=== PATIENT | female | born 1990 | race Caucasian/White ===

== ENCOUNTER 2016-04-14 10:52 | Inpatient (IN) | payer OTHER ==
[~2016-04-14] VITALS: Ht 172.7 cm; Wt 59.1 kg
[~2016-04-14 10:52] MED LIST: CARI350T28 PO; FRCT/ PO; OXYC1TAB3 PO; PROM25TA9 PO
[2016-04-14] MEDS ORDERED: QUET1TAB34 PO (11:21)
[2016-04-14] MEDS ORDERED: VST25HP PO (11:21)
--- NOTE | 2016-04-14 11:38 | EMERGENCY ROOM VISIT NOTE ---
History Report prepared by Donya: Shaun Salazar Under the Supervision of: Dr. Sukumar Bradley M.D. First contact with patient: 11:23 Chief Complaint: MENTAL HEALTH EVALUATION Stated Complaint: MENTAL HEALTH History of Present Illness The patient is a 25 year old female who presents to the Emergency Room with complaints of worsening suicidal thoughts that started recently. She was referred here from her psych doctor. The patient has been thinking that she needs to cut herself, but she has not cut herself for a while. She says that she has "so many plans" to kill herself, including using a gun or overdosing. Her mother had the guns removed from the house recently. Per the patient's fiance, the patient looks online for hours to find the best way to kill herself. She did try to hang herself at age 9. She is clinically depressed and has bipolar. The patient is currently not working, and that stresses her out. She is also planning a wedding. The patient notes that 2 days ago she got really angry at herself and was punching herself. She did not injure herself. She has no physical complaints, and denies any abdominal pain or swelling in her legs. The patient is taking Seroquel so she is sleeping well. Source of History: patient, spouse/significant other Onset: Recently Position: other (global - suicidal ideations) Symptom Intensity: Timing: worsening Associated Symptoms: No abdominal pain Note: Associated symptoms: Denies swelling in legs. Review of Systems See HPI for pertinent positives & negatives. A total of 10 systems reviewed and were otherwise negative. Past Medical & Surgical Medical Problems: (1) Depression (2) Uterine polyp Surgical Problems: (1) S/P section Old medical records were reviewed. Nurse's notes were reviewed and I agree with. Family History Cancer Kidney disease Kidney stones Social History Smoking Status: Current Every Day Smoker Alcohol Use: none Marital Status: single Housing Status: lives with family Occupation Status: unemployed Current/Historical Medications Scheduled Acetamin/Butalbital/Caffeine (Fioricet), 1-2 TAB PO Q4H Carisoprodol (Soma), 350 MG PO TID Hydroxyzine HCl (Hydroxyzine Pamoate), 25 MG PO UD Quetiapine Fumarate (Seroquel), 100 MG PO HS Sucralfate (Carafate), 1 GM PO PRN Allergies Coded Allergies: Acetaminophen (Verified Allergy, Severe, itchy and blotchy, 04/14/16) Hydrocodone (Verified Allergy, Severe, itchy and blotchy, 04/14/16) Ondansetron (Verified Allergy, Severe, red streaks, 04/14/16) Physical Exam Vital Signs Date Time Temp Pulse Resp B/P Pulse Ox O2 Delivery O2 Flow Rate FiO2 04/14/16 13:00 80 16 104/71 99 04/14/16 11:01 37.0 110 18 119/86 99 Room Air Physical Exam General: Well developed well nourished non ill-appearing young female in no acute distress, breathing comfortably on room air. Normal speech HEENT: Normal cephalic atraumatic. Pupils are equal round and reactive to light. Sclerae anicteric. Extraocular movements are intact. Oropharynx is pink with moist mucous membranes. No swelling of the mouth lips or tongue. Neck: Supple with a midline trachea. No meningeal signs or stiffness, no JVD or bruits. No Stridor. Chest: Clear to auscultation bilaterally. No wheezes or rhonchi. No increased work of breathing. Heart: regular rate and rhythm. Abdomen: Soft nontender, nondistended without rebound guarding or rigidity. Extremities: No cyanosis clubbing or edema. No calf tenderness or assymetry Spine/Back. Non tender to palpation. No CVA tenderness Skin: Good turgor without rashes. Psych: Normal thought process, has suicidal ideations, somewhat flattened affect. Neurologic exam: Cranial nerves two through 12 are intact. Motor and sensation are intact and symmetrical throughout. Medical Decision & Procedures Laboratory Results 04/14/16 12:01 Red Blood Count 4.23, Mean Corpuscular Volume 89.1, Mean Corpuscular Hemoglobin 32.4, Mean Corpuscular Hemoglobin Concent 36.3, Mean Platelet Volume 10.0, Neutrophils (%) (Auto) 58.0, Lymphocytes (%) (Auto) 36.1, Monocytes (%) (Auto) 4.6, Eosinophils (%) (Auto) 1.1, Basophils (%) (Auto) 0.1, Neutrophils # (Auto) 4.63, Lymphocytes # (Auto) 2.89, Monocytes # (Auto) 0.37, Eosinophils # (Auto) 0.09, Basophils # (Auto) 0.01 04/14/16 12:01 Test 04/14/16 00:00 04/14/16 12:01 Urine Opiates Screen POS (NEG) Urine Methadone, Qualitative NEG (NEG) Urine Barbiturates POS (NEG) Urine Phencyclidine (PCP) Level NEG (NEG) Ur Amphetamine/Methamphetamine NEG (NEG) MDMA (Ecstasy) Screen NEG (NEG) Urine Benzodiazepines Screen NEG (NEG) Urine Cocaine Metabolite NEG (NEG) Urine Marijuana (THC) NEG (NEG) White Blood Count 8.00 K/uL (4.8-10.8) Red Blood Count 4.23 M/uL (4.2-5.4) Hemoglobin 13.7 g/dL (12.0-16.0) Hematocrit 37.7 % (37-47) Mean Corpuscular Volume 89.1 fL (80-100) Mean Corpuscular Hemoglobin 32.4 pg (25-34) Mean Corpuscular Hemoglobin Concent 36.3 g/dl (32-36) Platelet Count 192 K/uL (130-400) Mean Platelet Volume 10.0 fL (7.4-10.4) Neutrophils (%) (Auto) 58.0 % Lymphocytes (%) (Auto) 36.1 % Monocytes (%) (Auto) 4.6 % Eosinophils (%) (Auto) 1.1 % Basophils (%) (Auto) 0.1 % Neutrophils # (Auto) 4.63 K/uL (1.4-6.5) Lymphocytes # (Auto) 2.89 K/uL (1.2-3.4) Monocytes # (Auto) 0.37 K/uL (0.11-0.59) Eosinophils # (Auto) 0.09 K/uL (0-0.5) Basophils # (Auto) 0.01 K/uL (0-0.2) RDW Standard Deviation 37.1 fL (36.4-46.3) RDW Coefficient of Variation 11.5 % (11.5-14.5) Immature Granulocyte % (Auto) 0.1 % Immature Granulocyte # (Auto) 0.01 K/uL (0.00-0.02) Anion Gap 8.0 mmol/L (3-11) Est Creatinine Clear Calc Drug Dose 118.0 ml/min Estimated GFR () 140.9 Estimated GFR (Non- 121.6 BUN/Creatinine Ratio 17.4 (10-20) Calcium Level 8.6 mg/dl (8.5-10.1) Total Bilirubin 0.3 mg/dl (0.2-1) Direct Bilirubin < 0.1 mg/dl (0-0.2) Aspartate Amino Transf (AST/SGOT) 13 U/L (15-37) Alanine Aminotransferase (ALT/SGPT) 25 U/L (12-78) Alkaline Phosphatase 78 U/L (45-117) Total Protein 6.9 gm/dl (6.4-8.2) Albumin 3.8 gm/dl (3.4-5.0) Lipase 251 U/L (73-393) Thyroid Stimulating Hormone (TSH) 1.070 uIu/ml (0.300-4.500) Human Chorionic Gonadotropin, Qual NEG (NEG) Salicylates Level 5.1 mg/dl (2.8-20) Acetaminophen Level < 2 ug/ml (10-30) Ethyl Alcohol mg/dL < 3.0 mg/dl (0-3) Laboratory studies as stated above per my review. ED Course 1124: Past medical records reviewed. The patient was evaluated in room A7, and a complete history and physical examination were performed. 1328: I reevaluated the patient and she is resting comfortably. The patient verbally expressed understanding and agreement of the treatment plan. The patient will be evaluated for further treatment. 1330: The patient was seen by [facility]. [facility] will admit the patient for further treatment. 2100: Ordered Remove Nicoderm Patch 1 ea N/A. 0900: Ordered Nicoderm Cq 21MG Patch 1 patch TD. Medical Decision Differential diagnoses include: depression, anxiety, suicidal ideations. This patient comes in as described above. She has depression with multiple different suicidal ideation she's had no suicidal attempt. She was sent over by a psychiatrist. She has no physical complaints. Multiple blood testing was obtained for medical clearance. She is medically cleared. She has seen by [facility]. and they are going to admit her for further inpatient treatment and evaluation. Impression Primary Impression: Depression with suicidal ideation Scribe Attestation The scribe's documentation has been prepared under my direction and personally reviewed by me in its entirety. I confirm that the note above accurately reflects all work, treatment, procedures, and medical decision making performed by me. Departure Information Dispostion Mental Health Acute Care Referrals Ej Sutton M.D. (PCP) Patient Instructions My [facility]
[2016-04-14 12:19] LABS: BASO % 0.1 %; BASO ABS # 0.01 K/uL (0-0.2); COMPLETE YES; EOS % 1.1 %; HEMATOCRIT 37.7 % (37-47); IG% 0.1 %; LYMPH % 36.1 %; LYMPH ABS # 2.89 K/uL (1.2-3.4); MEAN CELL VOLUME 89.1 fL (80-100); MEAN CORPUSCULAR HEMOGLOBIN 32.4 pg (25-34); MEAN CORPUSCULAR HGB CONC 36.3 g/dl (32-36); MONO % 4.6 %; PLATELET COUNT 192 K/uL (130-400); RED BLOOD COUNT 4.23 M/uL (4.2-5.4)
[2016-04-14 12:36] LABS: BLOOD UREA NITROGEN 12 mg/dl (7-18); BUN/CREATININE RATIO 17.4 (10-20); CALCIUM 8.6 mg/dl (8.5-10.1); CARBON DIOXIDE 24 mmol/L (21-32); CHLORIDE 112 mmol/L (98-107); CREATININE 0.68 mg/dl (0.60-1.20); GLUCOSE 85 mg/dl (70-99); SODIUM 144 mmol/L (136-145)
[2016-04-14 12:39] LABS: BENZODIAZEPINE, URINE NEG (NEG); COCAINE,URINE NEG (NEG); PHENCYCLIDINE, URINE NEG (NEG)
[2016-04-14 12:39] LABS: ALKALINE PHOSPHATASE 78 U/L (45-117); ALT/SGPT 25 U/L (12-78); AST/SGOT 13 U/L (15-37)
[2016-04-14 12:40] LABS: ACETAMINOPHEN < 2 ug/ml (10-30); PREG INTERNAL POSITIVE QC POS CONTROL LINE
[2016-04-14 12:41] LABS: PREG INTERNAL NEGATIVE QC NEG CLEAR BACKGROUND
[2016-04-14 13:00] VITALS: O2SAT 99
[2016-04-14] MEDS ORDERED: NICOTINE 21 MG/24 HR TDSY ONE (13:28)
[2016-04-14] MEDS ORDERED: MAGNESIUM HYDROXIDE SUSP 30 ML UDC PO PRN (13:45)
[2016-04-14] MEDS ORDERED: SODIUM CHLORIDE 0.65% NA SOLN 45 ML (OCEAN) PRN (13:45)
[2016-04-14] MEDS ORDERED: IBUPROFEN 200 MG TAB PO PRN (13:45)
[2016-04-14] MEDS ORDERED: ALUMINUM/MAGNESIUM SUSP 30 ML UDC PO PRN (13:45)
[2016-04-14] MEDS ORDERED: BISMUTH SUBSALICYLATE PER ML OMNICELL CHARGE PO PRN (13:45)
[2016-04-14] MEDS ORDERED: BUTALBITAL/ASA/CAFFEINE/COD 50/325/40/30 MG CAP PO PRN ×2 (15:00→22:00)
[2016-04-14] MEDS ORDERED: SUCRALFATE 1 GM TAB PO PRN ×2 (15:00→17:30)
[2016-04-14] MEDS ORDERED: QUETIAPINE FUMARATE 25 MG TAB PO PRN (15:15)
[2016-04-14 15:39] VITALS: BP 120/84; PULSE 101; TEMP 36.9; Ht 172.7 cm; Wt 59.1 kg
[2016-04-14] MEDS: NICOTINE POLACRILEX 2 MG GUM MT PRN ×2 (16:41→21:23)
[2016-04-14] MEDS ORDERED: SUCR1TAB29 PO (17:15)
[2016-04-14] MEDS ORDERED: NURSING VERBAL MED ORDER ONE ×2 (17:15→17:30)
[2016-04-14] MEDS ORDERED: SUCRALFATE 1 GM TAB PO SCH (17:45)
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
[2016-04-14] MEDS: CARISOPRODOL 350 MG TAB PO SCH (21:23)
[2016-04-14] MEDS: QUETIAPINE FUMARATE 100 MG TAB PO SCH (22:45)
[2016-04-15 06:59] LABS: CHOLESTEROL/HDL RATIO 3.2
[2016-04-15 07:02] VITALS: BP_SYST 101; BP_SYST 99; BP_DIAS 64; PULSE 81; PULSE 97; TEMP 36.9
[2016-04-15] MEDS: NICOTINE POLACRILEX 2 MG GUM MT PRN ×6 (07:02→21:47)
[2016-04-15] MEDS: CARISOPRODOL 350 MG TAB PO SCH ×3 (08:50→21:43)
[2016-04-15] MEDS: NICOTINE 21 MG/24 HR TDSY TD SCH (08:52)
[2016-04-15] MEDS ORDERED: NICOTINE 21 MG/24 HR TDSY TD SCH (09:00)
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
[2016-04-15] MEDS ORDERED: BUTALBITAL/ASA/CAFFEINE/COD 50/325/40/30 MG CAP PO ONE (09:41)
[2016-04-15] MEDS ORDERED: MedroxyPROGESTERone ACETATE 150 MG/ML 1 ML VIAL IM ONE (09:45)
[2016-04-15] MEDS: BUTALBITAL/ASA/CAFFEINE/COD 50/325/40/30 MG CAP PO PRN ×2 (13:02→21:40)
[2016-04-15] MEDS: hydrOXYzine HCL 25 MG TAB PO PRN ×2 (18:41→23:43)
[2016-04-15] MEDS: QUETIAPINE FUMARATE 100 MG TAB PO SCH (21:42)
[2016-04-16 06:48] VITALS: BP_SYST 102; BP_SYST 90; BP_DIAS 53; BP_DIAS 64; PULSE 83; PULSE 87; TEMP 37
[2016-04-16] MEDS: CARISOPRODOL 350 MG TAB PO SCH ×3 (09:01→21:18)
[2016-04-16] MEDS: NICOTINE 21 MG/24 HR TDSY TD SCH (09:02)
[2016-04-16] MEDS: NICOTINE POLACRILEX 2 MG GUM MT PRN ×5 (09:02→22:26)
[2016-04-16] MEDS: hydrOXYzine HCL 25 MG TAB PO PRN ×2 (13:51→22:16)
[2016-04-16] MEDS: BUTALBITAL/ASA/CAFFEINE/COD 50/325/40/30 MG CAP PO PRN ×2 (13:55→19:31)
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
[2016-04-16] MEDS ORDERED: NURSING VERBAL MED ORDER ONE (20:15)
[2016-04-16] MEDS: QUETIAPINE FUMARATE 100 MG TAB PO SCH (21:19)
[2016-04-17 06:36] VITALS: BP_SYST 106; BP_SYST 94; BP_DIAS 58; BP_DIAS 64; PULSE 69; PULSE 85; TEMP 37
[2016-04-17] MEDS: CARISOPRODOL 350 MG TAB PO SCH ×3 (08:41→21:16)
[2016-04-17] MEDS: NICOTINE 21 MG/24 HR TDSY TD SCH (08:42)
[2016-04-17] MEDS: NICOTINE POLACRILEX 2 MG GUM MT PRN ×4 (11:08→21:58)
[2016-04-17] MEDS: BUTALBITAL/ASA/CAFFEINE/COD 50/325/40/30 MG CAP PO PRN ×2 (12:07→18:40)
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
[2016-04-17] MEDS ORDERED: NURSING VERBAL MED ORDER ONE (17:15)
[2016-04-17] MEDS: QUETIAPINE FUMARATE 100 MG TAB PO SCH (21:17)
[2016-04-17] MEDS: hydrOXYzine HCL 25 MG TAB PO PRN (21:18)
[2016-04-17] MEDS: LITHIUM CARBONATE 300 MG TAB PO SCH (21:18)
[2016-04-18 06:30] VITALS: BP_SYST 101; BP_SYST 105; BP_DIAS 69; BP_DIAS 71; PULSE 85; PULSE 90; TEMP 36.9
[2016-04-18] MEDS: NICOTINE 21 MG/24 HR TDSY TD SCH (08:33)
[2016-04-18] MEDS: CARISOPRODOL 350 MG TAB PO SCH ×3 (08:34→21:56)
[2016-04-18] MEDS: NICOTINE POLACRILEX 2 MG GUM MT PRN ×4 (08:34→20:00)
[2016-04-18] MEDS: LITHIUM CARBONATE 300 MG TAB PO SCH ×2 (08:34→21:56)
[2016-04-18] MEDS: BUTALBITAL/ASA/CAFFEINE/COD 50/325/40/30 MG CAP PO PRN ×2 (10:16→16:18)
[2016-04-18] MEDS: hydrOXYzine HCL 25 MG TAB PO PRN ×2 (12:46→22:01)
[2016-04-18 15:43] LABS: COD UR 236 NG/ML (CUTOFF=50); HYDROCOD UR NEGATIVE NG/ML (CUTOFF=50); HYDROMOR UR 57 NG/ML (CUTOFF=50); MORPHINE UR 845 NG/ML (CUTOFF=50); NORHYDROCODONE CONF UR 333 NG/ML (CUTOFF=50); OXYMORPH UR NEGATIVE NG/ML (CUTOFF=50)
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
[2016-04-18] MEDS: POLYETHYLENE (MIRALAX) 17 GM PACK PO PRN (19:10)
[2016-04-18] MEDS: QUETIAPINE FUMARATE 100 MG TAB PO SCH (21:56)
[2016-04-19 07:02] VITALS: BP_SYST 104; BP_SYST 106; BP_DIAS 68; BP_DIAS 69; PULSE 87; PULSE 97; TEMP 36.8
[2016-04-19] MEDS: NICOTINE 21 MG/24 HR TDSY TD SCH (09:43)
[2016-04-19] MEDS: CARISOPRODOL 350 MG TAB PO SCH ×3 (09:43→21:10)
[2016-04-19] MEDS: LITHIUM CARBONATE 300 MG TAB PO SCH ×2 (09:43→21:09)
[2016-04-19] MEDS: NICOTINE POLACRILEX 2 MG GUM MT PRN ×5 (09:44→21:59)
[2016-04-19] MEDS: BUTALBITAL/ASA/CAFFEINE/COD 50/325/40/30 MG CAP PO PRN ×2 (14:20→20:47)
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
[2016-04-19] MEDS: POLYETHYLENE (MIRALAX) 17 GM PACK PO PRN (15:55)
[2016-04-19] MEDS: QUETIAPINE FUMARATE 100 MG TAB PO SCH (21:09)
[2016-04-19] MEDS: hydrOXYzine HCL 25 MG TAB PO PRN (21:21)
[2016-04-20 06:45] VITALS: BP_SYST 105; BP_SYST 99; BP_DIAS 62; BP_DIAS 67; PULSE 80; PULSE 94; TEMP 37
[2016-04-20] MEDS: NICOTINE 21 MG/24 HR TDSY TD SCH (08:23)
[2016-04-20] MEDS: LITHIUM CARBONATE 300 MG TAB PO SCH (08:23)
[2016-04-20] MEDS: CARISOPRODOL 350 MG TAB PO SCH (08:23)
[2016-04-20] MEDS: NICOTINE POLACRILEX 2 MG GUM MT PRN (09:14)
[2016-04-20] MEDS ORDERED: SRQ300 PO (11:45)
[2016-04-20] MEDS ORDERED: VST25HP PO (11:45)
[2016-04-20] MEDS ORDERED: LTH300T PO (11:45)
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
== END 2016-04-20 11:58 | disposition home or self-care (01) | DRG 885 ==
LOC: C.EDB 10:54 → C.MHU 13:48
PROVIDERS: ADMIT Psychiatry & Neurology Child & Adolescent Psychiatry; ATTEND Psychiatry & Neurology Child & Adolescent Psychiatry
DX: F31.81 Bipolar II disorder (principal); R45.851 Suicidal ideations; F43.10 Post-traumatic stress disorder, unspecified; G89.29 Other chronic pain; Z81.8 Family history of other mental and behavioral disorders; Z79.899 Other long term (current) drug therapy

== ENCOUNTER → 2016-12-28 | Outpatient (CLI) | payer OTHER ==
[~2016-12-28] MED LIST changes: +LTH300T PO; -OXYC1TAB3 PO; -PROM25TA9 PO; +SRQ300 PO; +SUCR1TAB29 PO; +VST25HP PO
[2016-12-28 14:20] LABS: THYROID STIMULATING HORMONE 3.17 uIu/ml (0.300-4.500)
== END | disposition home or self-care (01) ==
LOC: C.LABMFLN 10:19
PROVIDERS: ATTEND Family Medicine
DX: K59.09 Other constipation (principal)

== ENCOUNTER → 2017-03-27 | Outpatient (CLI) | payer OTHER ==
[2017-03-27 12:27] LABS: ALBUMIN 3.7 gm/dl (3.4-5.0); ALT/SGPT 33 U/L (12-78); BLOOD UREA NITROGEN 17 mg/dl (7-18); CALCIUM 8.7 mg/dl (8.5-10.1); CARBON DIOXIDE 24 mmol/L (21-32); CREATININE 0.65 mg/dl (0.60-1.20); GLUCOSE 89 mg/dl (70-99); POTASSIUM 4.2 mmol/L (3.5-5.1); SODIUM 139 mmol/L (136-145)
[2017-03-27 12:38] LABS: ALKALINE PHOSPHATASE 82 U/L (45-117); AST/SGOT 18 U/L (15-37)
== END | disposition home or self-care (01) ==
LOC: C.LAB1850 10:24
PROVIDERS: ATTEND Internal Medicine Endocrinology, Diabetes & Metabolism
DX: E55.9 Vitamin D deficiency, unspecified (principal)

== ENCOUNTER → 2017-04-02 | Outpatient (CLI) | payer OTHER | END | disposition home or self-care (01) | LOC: C.LABMFLN 12:18 | PROVIDERS: ATTEND Family Medicine | DX: E55.9 Vitamin D deficiency, unspecified (principal) ==

== ENCOUNTER 2017-05-12 08:38 | Emergency (ER) | payer OTHER ==
[~2017-05-12] VITALS: Ht 172.7 cm; Wt 64.0 kg
[2017-05-12 08:40] VITALS: Ht 172.7 cm; Wt 64.0 kg
[2017-05-12] MEDS ORDERED: OXYC-57 PO (10:05)
[2017-05-12] MEDS ORDERED: PROM25TA9 PO (10:05)
[2017-05-12] MEDS ORDERED: ESCI10TA17 PO (10:05)
[2017-05-12] MEDS ORDERED: ASPI325T39 PO (10:07)
[2017-05-12] MEDS ORDERED: KETOROLAC TROMETHAMINE 30 MG/ML VIAL IV STA (10:08)
--- NOTE | 2017-05-12 10:10 | DIAGNOSTIC IMAGING REPORT ---
R FOOT MIN 3 VIEWS ROUTINE CLINICAL HISTORY: 26 years-old Female presenting with post op bunyion surgery. TECHNIQUE: Frontal, oblique, and lateral views of the right foot were obtained. COMPARISON: None. FINDINGS: Postsurgical changes of osteotomy across the neck of the first metatarsal with single screw fixation. Normal anatomic alignment of the first metatarsal with the proximal phalanx of the first toe. No other abnormality is evident apart from a suspected bone island in the anterior process of the talus. IMPRESSION: Postsurgical changes of the first metatarsal. Normal anatomic alignment. Electronically signed by: Jimi Toro M.D. 05/12/2017 10:09 AM Dictated Date/Time: 05/12/2017 10:08 AM
[2017-05-12] MEDS ORDERED: OXYCODONE HCL IR 5 MG TAB (IMMEDIATE RELEASE) PO STA (10:14)
[2017-05-12 11:27] LABS: BASO % 0.3 %; BASO ABS # 0.03 K/uL (0-0.2); EOS % 1.8 %; EOS ABS # 0.18 K/uL (0-0.5); HEMATOCRIT 38.1 % (37-47); HEMOGLOBIN 13.5 g/dL (12.0-16.0); IG# 0.02 K/uL (0.00-0.02); LYMPH % 26.9 %; LYMPH ABS # 2.71 K/uL (1.2-3.4); MEAN CELL VOLUME 90.3 fL (80-100); MEAN CORPUSCULAR HGB CONC 35.4 g/dl (32-36); MEAN PLATELET VOLUME 10.1 fL (7.4-10.4); MONO % 3.8 %; MONO ABS # 0.38 K/uL (0.11-0.59); NEUT ABS # 6.75 K/uL (1.4-6.5); PLATELET COUNT 163 K/uL (130-400); RED CELL DISTRIBUTION WIDTH CV 11.8 % (11.5-14.5); RED CELL DISTRIBUTION WIDTH SD 38.5 fL (36.4-46.3); WHITE BLOOD COUNT 10.07 K/uL (4.8-10.8)
[2017-05-12 11:37] LABS: CALCIUM 8.2 mg/dl (8.5-10.1); CREATININE 0.66 mg/dl (0.60-1.20); POTASSIUM 3.6 mmol/L (3.5-5.1)
[2017-05-12] MEDS ORDERED: OXYC1TAB3 PO (11:38)
[2017-05-12 11:50] VITALS: BP 105/71; PULSE 89; TEMP 36.8; O2SAT 97
[2017-05-12 12:02] LABS: INFLUENZA A PCR Neg for Influ A (NEG); INFLUENZA B PCR Neg for Influ B (NEG)
--- NOTE | 2017-05-12 15:53 | EMERGENCY ROOM VISIT NOTE ---
ED Visit Note First contact with patient: 08:50 Resident Physician Supervision Note: I interviewed and examined the patient. Discussed with Dr. Leigh and agree with findings and plan as documented in the note. Any exceptions or clarifications are listed here: This patient was evaluated and appeared to be in some discomfort. Evaluation of the right foot reveals well-healing incisions. There is mild erythema without obvious cellulitis or wound infection. The patient is tearful and anxious. I suspect she is in pain however I do not believe she is narcotic na ve. She has been taking 2 Percocet tablets every 4 hours without any significant improvement in pain. Patient and her at the bedside apparently laughed when OxyIR 5 mg by mouth was offered by nursing staff. She did take the medication. I do not see an indication for advice at this time as the patient's white blood cell count and sedimentation rate are normal. CRP is mildly elevated, likely postsurgical. Patient has remained afebrile here well beyond 6 hours after her last dose of Tylenol. She was given a short prescription for OxyIR to be taken for breakthrough pain until she can follow- up with her changer fixer in 2 days, Sunday. They will return to the ER for worsening of symptoms or any medical concerns. Documented By: Patrizia Chandler
--- NOTE | 2017-05-13 22:22 | EMERGENCY ROOM VISIT NOTE ---
History First contact with patient: 08:50 Chief Complaint: FOOT PAIN Stated Complaint: R FOOT PAIN POST SURGERY History of Present Illness The patient is a 26 year old female who presents to the Emergency Room with complaints of right foot pain. She is 3 days post op from Bunion surgery. She reports a temp of 103 this morning and worsening pain. She did call her fiberglass dowel drawing operator who recommended taking tylenol. She decided to come to the ER because her pain is worse and she is worried about a possible infection. She denies any numbness/tingling. Denies nausea, vomiting. She does feel like a blister is forming at her heels. She feels as though her cast is too tight. She has been taking percocet 2 tabs every 4 hours and reports that it's not "touching" the pain. She denies shortness of breath. She does have a cough Denies calf tenderness She currently takes Soma and Fioricet for her headaches. Review of Systems See above for pertinent positives & negatives. A total of 10 systems reviewed and were otherwise negative. Past Medical/Surgical History Medical Problems: (1) Bipolar II disorder (2) Chronic pain (3) Depression (4) past psych meds (5) PTSD (post-traumatic stress disorder) (6) Uterine polyp Surgical Problems: (1) S/P section Family History Cancer Kidney disease Kidney stones Social History Smoking Status: Current Every Day Smoker Alcohol Use: none Marital Status: single Housing Status: lives with family Occupation Status: unemployed Current/Historical Medications Scheduled Aspirin (Aspirin Ec), 325 MG PO QAM Carisoprodol (Soma), 350 MG PO TID Escitalopram (Lexapro), 10 MG PO QAM Sucralfate (Carafate), 1 GM PO PRN Scheduled PRN Acetamin/Butalbital/Caffeine (Fioricet), 1-2 TAB PO Q4H PRN for Migraine Hydroxyzine HCl (Hydroxyzine Pamoate), 25 MG PO UD PRN for Anxiety/Agitation Oxycodone Immediate Rel Tab (Roxicodone Ir), 5 MG PO Q6H PRN for Pain Oxycodone/Acetaminophen 5MG/325MG (Percocet 5MG/325MG), 1 TABLET PO Q6H PRN for Pain Promethazine Hcl (Phenergan), 25 MG PO Q4H PRN for Nausea Physical Exam Vital Signs Date Time Temp Pulse Resp B/P (MAP) Pulse Ox O2 Delivery O2 Flow Rate FiO2 05/12/17 11:50 36.8 89 18 105/71 97 05/12/17 10:32 37.1 88 16 110/69 98 Room Air 05/12/17 08:40 36.8 120 18 164/71 94 Room Air Physical Exam GENERAL: Patient is awake alert and in mild distress EYES: The conjunctivae are clear. The pupils are round and reactive. EARS, NOSE, MOUTH AND THROAT: Mucous membranes are moist tongue is midline NECK: The neck is nontender and supple. RESPIRATORY: Normal respiratory effort. NO wheezing rales or ronchi CARDIOVASCULAR: Regular rate and rhythm noted there no murmurs rubs or gallops normal S1 normal S2 GASTROINTESTINAL: The abdomen is soft. Bowel sounds are present in all quadrants. Abdomen is nontender MUSCULOSKELETAL/EXTREMITIES: The right foot is in a partial cast. The cast was removed. There are two incisions on the medial and later side of the feet. Both are clean, dry, intact. No drainage, minimal warmth, moderate tenderness. ROM at the ankle is limited due to pain. No calf tenderness. NEUROLOGIC: Patient is awake alert and oriented x3 Medical Decision & Procedures Laboratory Results 05/12/17 11:00 Red Blood Count 4.22, Mean Corpuscular Volume 90.3, Mean Corpuscular Hemoglobin 32.0, Mean Corpuscular Hemoglobin Concent 35.4, Mean Platelet Volume 10.1, Neutrophils (%) (Auto) 67.0, Lymphocytes (%) (Auto) 26.9, Monocytes (%) (Auto) 3.8, Eosinophils (%) (Auto) 1.8, Basophils (%) (Auto) 0.3, Neutrophils # (Auto) 6.75, Lymphocytes # (Auto) 2.71, Monocytes # (Auto) 0.38, Eosinophils # (Auto) 0.18, Basophils # (Auto) 0.03 05/12/17 11:00 Test 05/12/17 10:50 05/12/17 11:00 Influenza Type A (RT-PCR) Neg for Influ A (NEG) Influenza Type B (RT-PCR) Neg for Influ B (NEG) White Blood Count 10.07 K/uL (4.8-10.8) Red Blood Count 4.22 M/uL (4.2-5.4) Hemoglobin 13.5 g/dL (12.0-16.0) Hematocrit 38.1 % (37-47) Mean Corpuscular Volume 90.3 fL (80-100) Mean Corpuscular Hemoglobin 32.0 pg (25-34) Mean Corpuscular Hemoglobin Concent 35.4 g/dl (32-36) Platelet Count 163 K/uL (130-400) Mean Platelet Volume 10.1 fL (7.4-10.4) Neutrophils (%) (Auto) 67.0 % Lymphocytes (%) (Auto) 26.9 % Monocytes (%) (Auto) 3.8 % Eosinophils (%) (Auto) 1.8 % Basophils (%) (Auto) 0.3 % Neutrophils # (Auto) 6.75 K/uL (1.4-6.5) Lymphocytes # (Auto) 2.71 K/uL (1.2-3.4) Monocytes # (Auto) 0.38 K/uL (0.11-0.59) Eosinophils # (Auto) 0.18 K/uL (0-0.5) Basophils # (Auto) 0.03 K/uL (0-0.2) RDW Standard Deviation 38.5 fL (36.4-46.3) RDW Coefficient of Variation 11.8 % (11.5-14.5) Immature Granulocyte % (Auto) 0.2 % Immature Granulocyte # (Auto) 0.02 K/uL (0.00-0.02) Erythrocyte Sedimentation Rate 7 mm/hr (0-21) Anion Gap 5.0 mmol/L (3-11) Est Creatinine Clear Calc Drug Dose 130.3 ml/min Estimated GFR () 141.3 Estimated GFR (Non- 121.9 BUN/Creatinine Ratio 12.7 (10-20) Calcium Level 8.2 mg/dl (8.5-10.1) C-Reactive Protein 1.53 mg/dl (0-0.29) Medications Administered Medications (Trade) Dose Ordered Sig/Austen Route Start Time Stop Time Status Last Admin Dose Admin Oxycodone HCl (Roxicodone Immediate Rel Tab) 5 mg NOW STAT PO 05/12/17 10:14 05/12/17 10:30 DC 05/12/17 10:36 5 MG Medical Decision This is a 26 y/o F who presents with worsening pain and fever s/p bunion surgery. DDx include pneumonia, dvt, infection, post op pain, viral illness etc. Foot X-ray show post surgical changes. Exam was unremarkable. The incisions were clean dry and intact without any drainage. She was afebrile while in the ED. She was complaining of pain and this was managed with oxycodone. CBC did not reveal any leucocytosis. ESR was normal. Crp was slightly elevated at 1.5. Flu swab was negative for influenza A and B. Her foot was re-casted. Her pain is likely post-op pain and currently there is no evidence of infection. She was advised to continue her percocet as prescribed by her Management Aide. She was given a short course of Oxycodone until she can follow up with her fiberglass dowel drawing operator. She was advised to follow up on Sunday. Should her pain continue to worsen or fever persists she was advised to come back to the ED. Impression Primary Impression: Postoperative pain of extremity Departure Information Dispostion Home / Self-Care Condition GOOD Prescriptions Oxycodone Immediate Rel Tab (ROXICODONE IR) 5 Mg Tab 5 MG PO Q6H Y for Pain, #15 TAB Prov: Reta Leigh MD 05/12/17 Forms HOME CARE DOCUMENTATION FORM, IMPORTANT VISIT INFORMATION Patient Instructions My [facility] Additional Instructions You were seen in the ED due to foot pain after orthopedic surgery. Your blood work here did not reveal any signs of infection. Your foot was removed from the existing cast and examined and there was no signs of infection at this time. You foot was redressed and recasted. Please continue your pain meds as prescribed. Please follow up with your Management Aide on SundayMay 14 If you have worsening pain, fevers, or other concerns, please call your PCP or come back to the ED.
== END 2017-05-12 11:51 | disposition home or self-care (01) ==
LOC: C.EDB 08:40
DX: G89.18 Other acute postprocedural pain (principal); Z98.890 Other specified postprocedural states; F31.81 Bipolar II disorder; G89.29 Other chronic pain; F17.200 Nicotine dependence, unspecified, uncomplicated; Z79.82 Long term (current) use of aspirin; Z80.9 Family history of malignant neoplasm, unspecified; Z84.1 Family history of disorders of kidney and ureter

== ENCOUNTER 2017-05-31 22:55 | Emergency (ER) | payer OTHER ==
[~2017-05-31] VITALS: Ht 172.7 cm; Wt 65.6 kg
[~2017-05-31 22:55] MED LIST changes: +ASPI325T39 PO; +ESCI10TA17 PO; -LTH300T PO; +OXYC-57 PO; +OXYC1TAB3 PO; +PROM25TA9 PO; -SRQ300 PO
[2017-05-31 23:00] VITALS: TEMP 36.7; Ht 172.7 cm; Wt 65.6 kg
[2017-05-31] MEDS ORDERED: KETOROLAC TROMETHAMINE 30 MG/ML VIAL IV STA (23:15)
[2017-05-31] MEDS ORDERED: CEFTRIAXONE SOD INJ 1 GM ADDVIAL IV STA (23:15)
[2017-06-01 00:10] LABS: ALBUMIN 3.8 gm/dl (3.4-5.0); ALT/SGPT 18 U/L (12-78); BLOOD UREA NITROGEN 17 mg/dl (7-18); CALCIUM 8.4 mg/dl (8.5-10.1); CARBON DIOXIDE 24 mmol/L (21-32); CREATININE 0.67 mg/dl (0.60-1.20); GLUCOSE 96 mg/dl (70-99); POTASSIUM 3.5 mmol/L (3.5-5.1); SODIUM 138 mmol/L (136-145)
[2017-06-01 00:12] LABS: ALKALINE PHOSPHATASE 96 U/L (45-117); AST/SGOT 14 U/L (15-37); TOTAL PROTEIN 7.3 gm/dl (6.4-8.2)
[2017-06-01 00:13] LABS: BASO % 0.3 %; BASO ABS # 0.03 K/uL (0-0.2); EOS % 1.7 %; EOS ABS # 0.19 K/uL (0-0.5); HEMATOCRIT 38.2 % (37-47); HEMOGLOBIN 13.8 g/dL (12.0-16.0); IG# 0.03 K/uL (0.00-0.02); LYMPH % 37.2 %; LYMPH ABS # 4.21 K/uL (1.2-3.4); MEAN CELL VOLUME 90.1 fL (80-100); MEAN CORPUSCULAR HEMOGLOBIN 32.5 pg (25-34); MEAN CORPUSCULAR HGB CONC 36.1 g/dl (32-36); MONO % 5.8 %; MONO ABS # 0.66 K/uL (0.11-0.59); NEUT % 54.7 %; NEUT ABS # 6.21 K/uL (1.4-6.5); PLATELET COUNT 224 K/uL (130-400); WHITE BLOOD COUNT 11.33 K/uL (4.8-10.8)
[2017-06-01] MEDS ORDERED: OPTIRAY 320 IV PRN (01:15)
[2017-06-01] MEDS ORDERED: CEPH500C2 PO (02:08)
[2017-06-01] MEDS ORDERED: OXYCODONE IR HOME PACK PO ONE (02:15)
[2017-06-01] MEDS ORDERED: CEPHALEXIN 500MG HOME PACK 1 EA BTL PO ONE (02:15)
[2017-06-01 02:41] VITALS: BP 114/62; PULSE 91; O2SAT 100
--- NOTE | 2017-06-01 04:58 | EMERGENCY ROOM VISIT NOTE ---
History First contact with patient: 23:05 Chief Complaint: OTHER COMPLAINT Stated Complaint: S/P FOOT SURGERY, RT FOOT INCISION WARM/THROBBING History of Present Illness The patient is a 26 year old female who presents to the Emergency Room with complaints of right foot pain and swelling for the past few days who had bunionectomy surgery done 3 weeks ago and [place] by podiatry. Patient states things are doing better for her in the past few days she feels as if there might be an infection. Patient does smoke and is on control. Patient denies fever, chills, numbness, tingling, new injury, chest pain, dyspnea, flulike illness. Tetanus is current. No IV drug abuse. Review of Systems An 10 system review of systems was completed with positives and pertinent negatives listed in the HPI. Past Medical/Surgical History Medical Problems: (1) Bipolar II disorder (2) Chronic pain (3) Depression (4) past psych meds (5) PTSD (post-traumatic stress disorder) (6) Uterine polyp Surgical Problems: (1) S/P section Family History Cancer Kidney disease Kidney stones Social History Smoking Status: Current Every Day Smoker Alcohol Use: none Marital Status: single Housing Status: lives with family Occupation Status: unemployed Current/Historical Medications Scheduled Aspirin (Aspirin Ec), 325 MG PO QAM Carisoprodol (Soma), 350 MG PO TID Cephalexin Monohydrate (Keflex), 500 MG PO QID Escitalopram (Lexapro), 10 MG PO QAM Sucralfate (Carafate), 1 GM PO PRN Scheduled PRN Acetamin/Butalbital/Caffeine (Fioricet), 1-2 TAB PO Q4H PRN for Migraine Hydroxyzine HCl (Hydroxyzine Pamoate), 25 MG PO UD PRN for Anxiety/Agitation Oxycodone Immediate Rel Tab (Roxicodone Ir), 5 MG PO Q6H PRN for Pain Oxycodone/Acetaminophen 5MG/325MG (Percocet 5MG/325MG), 1 TABLET PO Q6H PRN for Pain Promethazine Hcl (Phenergan), 25 MG PO Q4H PRN for Nausea Physical Exam Vital Signs Date Time Temp Pulse Resp B/P (MAP) Pulse Ox O2 Delivery O2 Flow Rate FiO2 06/01/17 02:41 91 18 114/62 100 06/01/17 01:05 94 18 111/65 100 Room Air 05/31/17 23:00 36.7 114 20 120/84 99 Room Air Physical Exam VITALS: Vitals are noted on the nurse's note and reviewed by myself. Vital signs stable. GENERAL: Pleasant female, in no acute distress, nondiaphoretic, well-developed well-nourished. SKIN: Capillary reflex less than 2 seconds. HEENT: Normocephalic. PERRLA. EOMI. Nares patent. Mucous membranes moist. Neck is supple without nuchal rigidity. HEART: Regular rate and rhythm without murmurs gallops or rubs. LUNGS: Clear to auscultation bilaterally without wheezes, rales or rhonchi. No retractions or accessory muscle use. ABDOMEN: Positive bowel sounds x 4. Normal tympanic percussion. Soft, nontender, without masses or organomegaly. Escobedo sign negative. No guarding or rebound tenderness. MUSCULOSKELETAL: No gross musculoskeletal defects. No calf tenderness. Right foot slightly erythematous and edematous with incisional site intact with no active drainage to the medial and lateral aspects of the incision sites. No lymphangitis. Pedal pulses +2 equal and present bilaterally. NEURO: Patient was alert and oriented to person place and time. Normal sensation to light and sharp touch. No focal neurological deficits. Medical Decision & Procedures Laboratory Results 05/31/17 23:41 Red Blood Count 4.24, Mean Corpuscular Volume 90.1, Mean Corpuscular Hemoglobin 32.5, Mean Corpuscular Hemoglobin Concent 36.1, Neutrophils (%) (Auto) 54.7, Lymphocytes (%) (Auto) 37.2, Monocytes (%) (Auto) 5.8, Eosinophils (%) (Auto) 1.7, Basophils (%) (Auto) 0.3, Neutrophils # (Auto) 6.21, Lymphocytes # (Auto) 4.21, Monocytes # (Auto) 0.66, Eosinophils # (Auto) 0.19, Basophils # (Auto) 0.03 05/31/17 23:41 Test 05/31/17 23:41 White Blood Count 11.33 K/uL (4.8-10.8) Red Blood Count 4.24 M/uL (4.2-5.4) Hemoglobin 13.8 g/dL (12.0-16.0) Hematocrit 38.2 % (37-47) Mean Corpuscular Volume 90.1 fL (80-100) Mean Corpuscular Hemoglobin 32.5 pg (25-34) Mean Corpuscular Hemoglobin Concent 36.1 g/dl (32-36) Platelet Count 224 K/uL (130-400) Neutrophils (%) (Auto) 54.7 % Lymphocytes (%) (Auto) 37.2 % Monocytes (%) (Auto) 5.8 % Eosinophils (%) (Auto) 1.7 % Basophils (%) (Auto) 0.3 % Neutrophils # (Auto) 6.21 K/uL (1.4-6.5) Lymphocytes # (Auto) 4.21 K/uL (1.2-3.4) Monocytes # (Auto) 0.66 K/uL (0.11-0.59) Eosinophils # (Auto) 0.19 K/uL (0-0.5) Basophils # (Auto) 0.03 K/uL (0-0.2) Immature Granulocyte % (Auto) 0.3 % Immature Granulocyte # (Auto) 0.03 K/uL (0.00-0.02) Erythrocyte Sedimentation Rate 5 mm/hr (0-21) Anion Gap 6.0 mmol/L (3-11) Est Creatinine Clear Calc Drug Dose 128.3 ml/min Estimated GFR () 140.6 Estimated GFR (Non- 121.3 BUN/Creatinine Ratio 25.3 (10-20) Calcium Level 8.4 mg/dl (8.5-10.1) Total Bilirubin 0.2 mg/dl (0.2-1) Aspartate Amino Transf (AST/SGOT) 14 U/L (15-37) Alanine Aminotransferase (ALT/SGPT) 18 U/L (12-78) Alkaline Phosphatase 96 U/L (45-117) C-Reactive Protein < 0.29 mg/dl (0-0.29) Total Protein 7.3 gm/dl (6.4-8.2) Albumin 3.8 gm/dl (3.4-5.0) Globulin 3.5 gm/dl (2.5-4.0) Albumin/Globulin Ratio 1.1 (0.9-2) Human Chorionic Gonadotropin, Qual NEG (NEG) Medications Administered Medications (Trade) Dose Ordered Sig/Austen Route Start Time Stop Time Status Last Admin Dose Admin Ketorolac Tromethamine (Toradol Inj) 10 mg NOW STAT IV 05/31/17 23:15 05/31/17 23:16 DC 05/31/17 23:45 10 MG Ceftriaxone Sodium (Rocephin Inj) 1 gm NOW STAT IV 05/31/17 23:15 05/31/17 23:16 DC 05/31/17 23:45 1 GM Cephalexin Monohydrate (Keflex 500MG Home Pack) 1 homepack NOW ONCE PO 06/01/17 02:15 06/01/17 02:16 DC 06/01/17 02:34 1 HOMEPACK Oxycodone HCl (Roxicodone Immediate Rel 5MG Home Pack) 1 homepack UD ONCE PO 06/01/17 02:15 06/01/17 02:16 DC 06/01/17 02:34 1 HOMEPACK ED Course Prior records reviewed and summarized as above. Triage Nursing notes reviewed. Additional history obtained from family. The patient's history was concerning for swelling and redness of the skin. Differential diagnosis: Etiologies such as postop infection, cellulitis, abscess, MRSA infection, DVT, necrotizing fasciitis, dermatitis, drug eruption, as well as others were entertained.. Physical examination: The physical examination was consistent with cellulitis ER treatment provided: Rocephin, Toradol On reassessment the patient felt better. Diagnostics interpreted by me: The labs revealed mild leukocytosis. Stable H&H Imaging studies: Ultrasound negative for DVT per radiology and per review Foot CT negative for abscess, soft tissue swelling around surgical site per radiology This appears to be right foot cellulitis. Patient had no lymphangitis. No DVT. No abscess. No osteomyelitis. She is advised to take antibiotics as directed and to follow-up with rolling attendant next few days or here in the ER sooner for fevers, spreading infection, severe pain, numbness, tingling, worsening signs or symptoms or as needed. By the evaluation outlined above emergent etiologies such as abscess, necrotizing fasciitis, DVT, as well as others were deemed relatively unlikely. The pt informed about the findings as listed above. All questions were answered and pleased with the treatment. Return instructions were outlined and the patient was discharged in stable condition. Outpatient prescription management: Keflex Referral: The patient was referred back to podiatry and/or primary care physician for follow-up in 2 to 3 days for a recheck of the current condition. Case reviewed with my attending The chart was completed utilizing [employer] Speech voice recognition software. Grammatical errors, random word insertions, pronoun errors, and incomplete sentences are an occassional consequence of this system due to software limitations, ambient noise, and hardware issues. Any formal questions or concerns about the content, text, or information contained within the body of this dictation should be directly addressed to the physician social science research assistant for clarification. Medical Decision As above [place] Drug Monitoring Program Search Results: patient reviewed within database, no issues identified Medication Reconcilliation Current Medication List: was personally reviewed by me Blood Pressure Screening Patient's blood pressure: Normal blood pressure Impression Primary Impression: Cellulitis of right foot Departure Information Dispostion Home / Self-Care Condition GOOD Prescriptions Cephalexin Monohydrate (KEFLEX) 500 Mg Cap 500 MG PO QID for 9 Days, #36 CAP Prov: Nereyda Florence .ARIANNA 06/01/17 Forms WORK / SCHOOL INSTRUCTIONS, HOME CARE DOCUMENTATION FORM, IMPORTANT VISIT INFORMATION Patient Instructions Cellulitis - [facility], [facility] Additional Instructions Cephalexin(Keflex) 500mg: Take one pill four times daily for 10 days for your skin infection. All antibiotics can cause diarrhea. If this occurs and you feel worse or it does not resolve in 1-2 days follow up with your doctor or return to the Emergency Department as this could be signs of serious underlying problems. Any medication can cause an allergic reaction, stop the pills immediately and return to the ER for rash, hives, breathing difficulties, or swelling. Ibuprofen(Motrin, Advil) may be used for fever or pain. Use 600mg every six hours as needed. Take with food. Avoid using more than 2400mg in a 24 hour period. Do not use 2400mg per day for more than three consecutive days without physician direction. Prolonged inappropriate use can lead to stomach upset or ulcers. (AND/OR) Acetaminophen(Tylenol) may be used for fever or pain. Use 1000mg every six hours as needed. Avoid using more than 3000mg in a 24 hour period. Warm compresses to the affected area 4 times daily for 15-20 minutes. Rest and drink plenty of fluids. Continue current medications. Return to the ER for severe pain, persistent fevers, spreading redness, or any worsening of your condition. Follow up with your primary physician and rolling attendant within 2-3 days for a recheck of the current condition.
--- NOTE | 2017-06-01 06:45 | DIAGNOSTIC IMAGING REPORT ---
ULTRASOUND R VENOUS DOPP LOWER EXT UNILAT CLINICAL HISTORY: Right leg pain and swelling COMPARISON STUDY: No previous studies for comparison. FINDINGS: Real-time and color flow Doppler imaging were performed. Flow was seen within the femoral, popliteal and calf veins with no intraluminal thrombus demonstrated. The saphenous vein is patent. IMPRESSION: No evidence of right lower extremity DVT. Electronically signed by: Javan Jeronimo M.D. 06/01/2017 6:43 AM Dictated Date/Time: 06/01/2017 6:43 AM
--- NOTE | 2017-06-01 07:11 | DIAGNOSTIC IMAGING REPORT ---
ENHANCED CT SCAN OF THE RIGHT FOOT CT DOSE: 169.89 mGy.cm CLINICAL HISTORY: Right foot pain, swelling, throbbing. History of prior first metatarsal osteotomy TECHNIQUE: The patient was scanned in a dynamic helical fashion during intravenous administration of 92 cc of Optiray 320. Sagittal and coronal reformatted imaging was performed. A dose lowering technique was utilized adhering to the principles of ALARA. COMPARISON STUDY: Conventional radiographic study dated 05/12/2017 FINDINGS: There are no pathologically enhancing masses. There are no fluid collections to indicate an abscess. There are postsurgical changes of a distal right first metatarsal osteotomy. Cortical irregularity is likely postsurgical although given the clinical history would be difficult with certainty to exclude osteomyelitis. There is a soft tissue thickening adjacent to the osteotomy site. Within the dorsal aspect of the first metatarsal head there is a 3.5 mm lucency containing a small central calcification. One cannot with certainty exclude a sequestrum as would be seen in infection. If symptoms persist, a short-term follow-up CT scan should be considered. IMPRESSION: 1. Postsurgical changes of a distal right first metatarsal osteotomy. There is single surgical screw fixation. The hardware appears intact 2. Nonspecific soft tissue swelling surrounding the surgical site. There are no fluid collections to indicate an abscess 3. Mild cortical irregularity of the bone and mild periostitis, likely relates to recent surgery. 4. 3.5 mm lucency within the dorsal aspect of the first metatarsal head. This is nonspecific but a tiny sequestrum cannot be excluded. 5. If symptoms persist, short-term follow-up CT scan should be considered. Electronically signed by: Javan Jeronimo M.D. 06/01/2017 7:09 AM Dictated Date/Time: 06/01/2017 7:01 AM
== END 2017-06-01 02:43 | disposition home or self-care (01) ==
LOC: C.EDB 22:56 → C.EDC 06-01 02:43
DX: L03.115 Cellulitis of right lower limb (principal); F17.200 Nicotine dependence, unspecified, uncomplicated; Z79.3 Long term (current) use of hormonal contraceptives; F31.81 Bipolar II disorder; F32.9 Major depressive disorder, single episode, unspecified; F43.10 Post-traumatic stress disorder, unspecified; Z79.82 Long term (current) use of aspirin; Z84.1 Family history of disorders of kidney and ureter